=== PATIENT | female | born 1995 | race American Indian/Alaskan Native ===

== ENCOUNTER → 2020-08-25 08:39 | Outpatient (CLI) | payer OTHER, SELFPAY | PROVIDERS: PCP Physician Assistant Medical; Visit Provider Physician Assistant Medical | DX: Z20.2 Contact with and (suspected) exposure to infections with a predominantly sexual mode of transmission (principal) | CPT/HCPCS: 87491; 87563; 87591; 87798 ==

== ENCOUNTER → 2020-09-14 10:55 | Outpatient (CLI) | payer OTHER, SELFPAY ==
[2020-09-14 19:33] LABS: Add Manual Diff / Slide Review NO; Basophils Absolute Auto 0 /uL (0-100); Basophils Percent Auto 0.6 % (0-2); Eosinophils Absolute Auto 200 /uL (0-450); Eosinophils Percent Auto 3.6 % (2-4); Hematocrit 41.8 % (36-46); Hemoglobin 13.9 g/dL (12.0-16.0); Lymphocytes Absolute Auto 1800 /uL (1100-4500); Lymphocytes Percent Auto 32.4 % (25-40); Mean Corpuscular HGB Conc 33.3 % (30-36); Mean Corpuscular Hemoglobin 30.5 PG (26-34); Mean Corpuscular Volume 91.7 fL (80-100); Monocytes Absolute Auto 300 /uL (0-900); Monocytes Percent Auto 5.6 % (3-14); Neutrophils Absolute Auto 3300 /uL (1500-7000); Neutrophils Percent Auto 57.8 % (50-75); Platelet Count 148 X10^3/uL (150-400); Red Blood Cell Count 4.56 X10^6/uL (4.0-5.2); Red Cell Distribution Width 13.7 % (11.6-14.8); White Blood Cell Count 5.7 X10^3/uL (4.5-11.0)
[2020-09-14 20:08] LABS: Monotest Negative (Negative)
[2020-09-14 21:00] LABS: COVID19 - ORCAS (NP or Nasal) Negative (Negative)
[2020-09-18 17:28] LABS: HIV 1 & 2 Ab/Ag 4th Gen Combo NEGATIVE (NEGATIVE)
== END ==
PROVIDERS: PCP Physician Assistant Medical; Visit Provider Physician Assistant Medical
DX: Z20.822 Contact with and (suspected) exposure to COVID-19 (principal); Z20.2 Contact with and (suspected) exposure to infections with a predominantly sexual mode of transmission; J02.9 Acute pharyngitis, unspecified
CPT/HCPCS: 85025; 86318; 87389; U0003

== ENCOUNTER → 2020-09-22 12:17 | Outpatient (CLI) | payer OTHER, SELFPAY ==
[2020-09-22 21:34] LABS: COVID19 - ORCAS (NP or Nasal) Negative (Negative)
== END ==
PROVIDERS: PCP Physician Assistant Medical; Visit Provider Physician Assistant Medical
DX: J02.9 Acute pharyngitis, unspecified (principal); Z20.822 Contact with and (suspected) exposure to COVID-19
CPT/HCPCS: U0003

== ENCOUNTER → 2020-10-11 15:31 | Outpatient (CLI) | payer OTHER, SELFPAY | PROVIDERS: PCP Physician Assistant Medical; Visit Provider Physician Assistant | DX: J02.9 Acute pharyngitis, unspecified (principal) | CPT/HCPCS: 87070 ==

== ENCOUNTER 2020-12-07 12:19 | Emergency (ER) | payer OTHER, SELFPAY ==
[2020-12-07 12:25] VITALS: BP 113/80; PULSE 84; RESP 14; TEMP 36.4; O2SAT 95; BMI 17.4
[2020-12-07 12:47] LABS: Add Manual Diff / Slide Review NO; Basophils Absolute Auto 100 /uL (0-100); Basophils Percent Auto 1.3 % (0-2); Eosinophils Absolute Auto 200 /uL (0-450); Eosinophils Percent Auto 4.4 % (2-4); Hemoglobin 14.4 g/dL (12.0-16.0); Lymphocytes Absolute Auto 1800 /uL (1100-4500); Lymphocytes Percent Auto 44.2 % (25-40); Mean Corpuscular HGB Conc 32.6 % (30-36); Mean Corpuscular Hemoglobin 30.6 PG (26-34); Mean Corpuscular Volume 93.7 fL (80-100); Monocytes Absolute Auto 300 /uL (0-900); Monocytes Percent Auto 6.3 % (3-14); Neutrophils Absolute Auto 1800 /uL (1500-7000); Neutrophils Percent Auto 43.8 % (50-75); Platelet Count 175 X10^3/uL (150-400); Red Cell Distribution Width 13.4 % (11.6-14.8); White Blood Cell Count 4.1 X10^3/uL (4.5-11.0)
[2020-12-07 13:05] LABS: Alanine Aminotransferase 23 IU/L (<35); Albumin 5.1 g/dL (3.5-5.0); Albumin Globulin Ratio 1.8 (1.0-2.8); Alkaline Phosphatase 59 U/L (38-126); Aspartate Aminotransferase 42 IU/L (14-36); Bilirubin Total 0.4 mg/dL (0.2-1.3); Blood Urea Nitrogen 12 mg/dL (7-17); Calcium 10.2 mg/dL (8.4-10.2); Carbon Dioxide 26 mmol/L (22-32); Chloride 102 mmol/L (98-107); Estimated Glomerular Filt Rate > 60.0 mL/min (>60); Globulin 2.8 g/dL (1.7-4.1); Glucose 87 mg/dL (70-100); HEMOLYSIS 45 (0-50); Lipase 241 U/L (23-300); Potassium 3.9 mmol/L (3.4-5.1); Sodium 139 mmol/L (137-145); Total Protein 7.9 g/dL (6.3-8.2)
[2020-12-07] MEDS: KETOROLAC 30 MG/ML VIAL 15 MG IV (13:33)
--- NOTE | 2020-12-07 16:10 | ED_ITS ---
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 She does not currently have a primary care provider , but is looking for 1, she has a Gastroenterology appointment December 28 at [facility] to establish care. She reports that she has had 3 fecal transplants in the past which were helpful, she reports that she is not currently taking any medication at this time. She does not have any nausea or vomiting, she does report a constant low level of pain, she denies any blood in her stool, she has been afebrile, does not have chest pain, shortness of breath, abdomen tenderness, dysuria, pelvic pain, or any other abdominal complaints. She reports that she is weak in, and it has been difficult to keep solid foods in her colon. She reports that she has been doing a lot of pureed foods and fermented foods to help with absorption and she states that whole foods trigger her diarrhea. Related Data Previous Rx's Medication Instructions Recorded ondansetron HCl 4 mg tablet 4 mg PO Q8H PRN #14 tab 12/07/20 (Zofran) tramadol 50 mg tablet 50 mg PO DAILY #10 tab 12/07/20 Allergies Allergy/AdvReac Type Severity Reaction Status Date / Time amoxicillin Allergy Unknown blisters, Verified 12/07/20 12:30 rash ampicillin Allergy Unknown blisters, Verified 12/07/20 12:30 rash clindamycin Allergy Unknown went Verified 12/07/20 12:30 septic vancomycin Allergy Unknown blisters,ra Verified 12/07/20 12:30 sh methocarbamol [From Robaxin] Allergy Verified 12/07/20 12:30 Penicillins Allergy Verified 12/07/20 12:30 reglin Allergy Unknown hallucinations, Uncoded 11/08/20 11:53 burning feeling Review of Systems <EUNICE Hightower - Last Filed: 12/07/20 21:15> Review of Systems Narrative: General: denies fever, chills Head/Neck: denies headache, neck pain Eyes: denies visual changes, eye pain Cardio: denies chest pain, palpitations Respiratory: denies shortness of breath, cough GI: Endorses left upper and lower quadrant pain that is constant and low level, denies nausea, vomiting, endorses frequent bouts of diarrhea : denies dysuria, hematuria MSK: denies joint pain, muscle weakness Skin: denies rash, itching Neuro: denies numbness, tingling Patient History <EUNICE Hightower - Last Filed: 12/07/20 21:15> Medical History Brain tumor, papilloma Gender identity disorder, unspecified Sore throat Toxic megacolon due to Clostridioides difficile Social History Smoking Status: Never smoker Smoking Status: Never smoker alcohol intake frequency: holidays/special occasions only Substance Use Type: marijuana Exam <EUNICE Hightower - Last Filed: 12/07/20 21:15> Narrative Exam Narrative: Independently reviewed vitals signs and nursing notes. General: Awake, alert, nontoxic, no cardiorespiratory distress, underweight Head/Neck: Atraumatic, neck full range of motion Eyes: EOMI, conjunctiva normal Nose: nares patent, no rhinorrhea Mouth/Throat: moist mucus membranes, posterior pharynx normal, no oral lesions Cardio: Regular rate and rhythm, no peripheral edema Respiratory: respirations unlabored without wheezing, stridor, or rales. No retractions. GI: Abdomen soft, nontender to palpation, no masses, no peritoneal signs of acute abdomen MSK: Moves all extremities, neurovascularly intact Skin: Normal capillary refill, no rash Neuro: Normal speech and cognition, normal gait Initial Vital Signs Initial Vital Signs: Vital Signs Temperature 97.5 F L 12/07/20 12:25 Pulse Rate 84 12/07/20 12:25 Respiratory Rate 14 12/07/20 12:25 Blood Pressure 113/80 12/07/20 12:25 Pulse Oximetry 95 12/07/20 12:25 <Amanda Shukla MD - Last Filed: 12/08/20 07:40> Initial Vital Signs Initial Vital Signs: Vital Signs Temperature 97.5 F L 12/07/20 12:25 Pulse Rate 84 12/07/20 12:25 Respiratory Rate 14 12/07/20 12:25 Blood Pressure 113/80 12/07/20 12:25 Pulse Oximetry 95 12/07/20 12:25 Course <EUNICE Hightower - Last Filed: 12/07/20 21:15> Orders Ordered: Discontinued Medications Ketorolac Tromethamine (Ketorolac 30 Mg/Ml Vial) 15 mg IV NOW ONE Stop: 12/07/20 13:28 Last Admin: 12/07/20 13:33 Dose: 15 mg Documented by: NEVA Reevaluation(s) Reevaluation #1: Consult with Dr. Latonya Quijano today from [facility] regarding patient's diagnosis, upcoming appointment with their practice, and plan of care outside of this emergency department visit until December 28. Dr. Quijano requested that we treat patient conservatively until we are sure that her stool is not infectious. Stool PCR sent, calprote ctin also sent in is still pending. PCR is negative for all viruses and bacteria including C diff, Campylobacter, Giardia, Shigelloides, and salmonella. These results were not available at the time of patient visit. Dr. Quijano requested that we not treat her with steroids and that mesalamine might not be helpful either. Vital Signs Vital signs: Vital Signs - 8 hr 12/07/20 16:35 Pulse Rate 80 Respiratory Rate 15 Blood Pressure 110/68 Pulse Oximetry 99 <Amanda Shukla MD - Last Filed: 12/08/20 07:40> Orders Ordered: Discontinued Medications Ketorolac Tromethamine (Ketorolac 30 Mg/Ml Vial) 15 mg IV NOW ONE Stop: 12/07/20 13:28 Last Admin: 12/07/20 13:33 Dose: 15 mg Documented by: NEVA Vital Signs Vital signs: Vital Signs - 8 hr 12/07/20 16:35 Pulse Rate 80 Respiratory Rate 15 Blood Pressure 110/68 Pulse Oximetry 99 MDM - Abdominal Pain <EUNICE Hightower - Last Filed: 12/07/20 21:15> Lab Data Result diagrams: 12/07/20 12:38 12/07/20 12:38 Labs: Lab Results 12/07/20 12/07/20 12/07/20 Range/Units 12:38 12:38 16:20 WBC 4.1 L (4.5-11.0) X10^3/uL RBC 4.70 (4.0-5.2) X10^6/uL Hgb 14.4 (12.0-16.0) g/dL Hct 44.0 (36-46) % MCV 93.7 (80-100) fL MCH 30.6 (26-34) PG MCHC 32.6 (30-36) % RDW 13.4 (11.6-14.8) % Plt Count 175 (150-400) X10^3/uL Neut % (Auto) 43.8 L (50-75) % Lymph % (Auto) 44.2 H (25-40) % Bailey % (Auto) 6.3 (3-14) % Eos % (Auto) 4.4 H (2-4) % Baso % (Auto) 1.3 (0-2) % Neut # (Auto) 1800 (8231-7946) /uL Lymph # (Auto) 1800 (0116-5636) /uL Bailey # (Auto) 300 (0-900) /uL Eos # (Auto) 200 (0-450) /uL Baso # (Auto) 100 (0-100) /uL Sodium 139 (137-145) mmol/L Potassium 3.9 (3.4-5.1) mmol/L Chloride 102 (98-107) mmol/L Carbon Dioxide 26 (22-32) mmol/L BUN 12 (7-17) mg/dL Creatinine 0.75 (0.52-1.04) mg/dL Estimated GFR > 60.0 (>60) mL/min BUN/Creatinine Ratio 16.0 (6-22) Glucose 87 (70-100) mg/dL Calcium 10.2 (8.4-10.2) mg/dL Total Bilirubin 0.4 (0.2-1.3) mg/dL AST 42 H (14-36) IU/L ALT 23 (<35) IU/L Alkaline Phosphatase 59 (38-126) U/L Total Protein 7.9 (6.3-8.2) g/dL Albumin 5.1 H (3.5-5.0) g/dL Globulin 2.8 (1.7-4.1) g/dL Albumin/Globulin Ratio 1.8 (1.0-2.8) Lipase 241 (23-300) U/L Stl C. cayetanensis PCR Not detected (Not Detect) Stool Rotavirus (PCR) Not detected (Not Detect) Stool Adenovirus (PCR) Not detected (Not Detect) Stool Astrovirus (PCR) Not detected (Not Detect) Stool Cryptosporidium PCR Not detected (Not Detect) Stl E.coli Shiga Tox PCR Not detected (Not Detect) St Sh/Enteroin Ecoli PCR Not detected (Not Detect) Stool E coli O157 PCR Not Reportable Stl Enterotoxigenic E PCR Not detected (Not Detect) Stool EPEC (PCR) Not detected (Not Detect) Stl E. histolytica PCR Not detected (Not Detect) Stool Giardia Lamblia PCR Not detected (Not Detect) Stool Sapovirus (PCR) Not detected (Not Detect) Stl P. shigelloides PCR Not detected (Not Detect) St Y.enterocolitica PCR Not detected (Not Detect) Stool Vibrio (PCR) Not detected (Not Detect) Stl Vibrio cholerae PCR Not detected (Not Detect) Stl Enteroaggr Ecoli PCR Not detected (Not Detect) Stl Norovirus GI/GII PCR Not detected (Not Detect) Campylobacter (PCR) Not detected (Not Detect) C. difficile Tox (PCR) Not detected (Not Detect) Salmonella (PCR) Not detected (Not Detect) Point of care testing: Point of Care Testing Test Results Negative Urine Dip Bedside Urine Glucose Negative Bedside Urine Bilirubin - Negative Bedside Urine Ketone - Negative Urine Specific [place] 1.010 Bedside Urine Occult Blood - Negative Bedside Urine pH 7.0 Bedside Urine Protein - Negative Bedside Urine Urobilinogen - Negative Bedside Urine Nitrite - Negative Bedside Urine Leukocytes - Negative Esterase MDM Narrative Medical decision making narrative: 25-year-old female with complicated GI history including 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 Patient has an upcoming ap pointment with [facility] on December 28, 2020. Today her stool was sent for GI panel, a stool calprotectin which is still pending, and lab work including CMP and CBC was completed, all of which do not show any signs of acute infection. She does not have any blood in her stool. This is most likely an acute flare of her ulcerative colitis without an infectious etiology. Differential includes Crohn's disease, other infectious colitis, IBS, ischemic colitis, diverticular disease, malignancy, antibiotic associated diarrhea. <Amanda Shukla MD - Last Filed: 12/08/20 07:40> Lab Data Labs: Lab Results 12/07/20 12/07/20 12/07/20 Range/Units 12:38 12:38 16:20 WBC 4.1 L (4.5-11.0) X10^3/uL RBC 4.70 (4.0-5.2) X10^6/uL Hgb 14.4 (12.0-16.0) g/dL Hct 44.0 (36-46) % MCV 93.7 (80-100) fL MCH 30.6 (26-34) PG MCHC 32.6 (30-36) % RDW 13.4 (11.6-14.8) % Plt Count 175 (150-400) X10^3/uL Neut % (Auto) 43.8 L (50-75) % Lymph % (Auto) 44.2 H (25-40) % Bailey % (Auto) 6.3 (3-14) % Eos % (Auto) 4.4 H (2-4) % Baso % (Auto) 1.3 (0-2) % Neut # (Auto) 1800 (7679-0020) /uL Lymph # (Auto) 1800 (6444-7121) /uL Bailey # (Auto) 300 (0-900) /uL Eos # (Auto) 200 (0-450) /uL Baso # (Auto) 100 (0-100) /uL Sodium 139 (137-145) mmol/L Potassium 3.9 (3.4-5.1) mmol/L Chloride 102 (98-107) mmol/L Carbon Dioxide 26 (22-32) mmol/L BUN 12 (7-17) mg/dL Creatinine 0.75 (0.52-1.04) mg/dL Estimated GFR > 60.0 (>60) mL/min BUN/Creatinine Ratio 16.0 (6-22) Glucose 87 (70-100) mg/dL Calcium 10.2 (8.4-10.2) mg/dL Total Bilirubin 0.4 (0.2-1.3) mg/dL AST 42 H (14-36) IU/L ALT 23 (<35) IU/L Alkaline Phosphatase 59 (38-126) U/L Total Protein 7.9 (6.3-8.2) g/dL Albumin 5.1 H (3.5-5.0) g/dL Globulin 2.8 (1.7-4.1) g/dL Albumin/Globulin Ratio 1.8 (1.0-2.8) Lipase 241 (23-300) U/L Stl C. cayetanensis PCR Not detected (Not Detect) Stool Rotavirus (PCR) Not detected (Not Detect) Stool Adenovirus (PCR) Not detected (Not Detect) Stool Astrovirus (PCR) Not detected (Not Detect) Stool Cryptosporidium PCR Not detected (Not Detect) Stl E.coli Shiga Tox PCR Not detected (Not Detect) St Sh/Enteroin Ecoli PCR Not detected (Not Detect) Stool E coli O157 PCR Not Reportable Stl Enterotoxigenic E PCR Not detected (Not Detect) Stool EPEC (PCR) Not detected (Not Detect) Stl E. histolytica PCR Not detected (Not Detect) Stool Giardia Lamblia PCR Not detected (Not Detect) Stool Sapovirus (PCR) Not detected (Not Detect) Stl P. shigelloides PCR Not detected (Not Detect) St Y.enterocolitica PCR Not detected (Not Detect) Stool Vibrio (PCR) Not detected (Not Detect) Stl Vibrio cholerae PCR Not detected (Not Detect) Stl Enteroaggr Ecoli PCR Not detected (Not Detect) Stl Norovirus GI/GII PCR Not detected (Not Detect) Campylobacter (PCR) Not detected (Not Detect) C. difficile Tox (PCR) Not detected (Not Detect) Salmonella (PCR) Not detected (Not Detect) Point of care testing: Point of Care Testing Test Results Negative Urine Dip Bedside Urine Glucose Negative Bedside Urine Bilirubin - Negative Bedside Urine Ketone - Negative Urine Specific [place] 1.010 Bedside Urine Occult Blood - Negative Bedside Urine pH 7.0 Bedside Urine Protein - Negative Bedside Urine Urobilinogen - Negative Bedside Urine Nitrite - Negative Bedside Urine Leukocytes - Negative Esterase Discharge Plan Departure Patient Disposition: Home Clinical Impression: Ulcerative colitis, acute Qualifiers: Digestive disease complication type: without complication Qualified Code(s): K 51.90 - Ulcerative colitis, unspecified, without complications Instructions: DI for Ulcerative Colitis Activity Restrictions/Additional Instructions: *You have been diagnosed with a ulcerative colitis flare. Please go to your appointment on December 28 with [facility]. Thank you for providing a stool sample, it will take about 24 hours for the culture calprotectin to results, if it results today while I am on shift I will give you a call, however let's not cross our fingers on that. We are starting conservatively with you as you know, I will order using tramadol these can also diamond picker at [facility]. Please do not take any ibuprofen or similar for 24 hours , tramadol is okay.. Try to stay hydrated and keep down which you can. It was nice to meet you today, hopefully to related good ground work for you to follow- up with gastroenterology. *What to do: *Please continue to take your regular medications as directed. [ x] New medication prescriptions sent to your pharmacy: [sonia Rodriguez] [ ] New medication written as a paper prescription [ ] No new medications given *Please follow up with your primary care provider in 2-3 days, call for an appointment. Let them know you were seen in the Emergency Department and that we ask that you be seen in follow up. We will electronically transmit a record of today's note if your PCP is in our system *If you do not have a primary care provider please contact the [facility] Resource line at [phone]. They will ask some questions about your medical history and help get you set up with a doctor in the community. *Return to Emergency Department if you should have any new, worsening or concerning symptoms, such as [fever greater than 101F, chills, worsening pain, persistent vomiting or other bothersome symptoms] Prescriptions: New ondansetron HCl [Zofran] 4 mg tablet 4 mg PO Q8H PRN (Reason: nausea and vomiting) Qty: 14 RF: 0 tramadol 50 mg tablet 50 mg PO DAILY Qty: 10 RF: 0 Referrals: Solange Badillo DO [Primary Care Provider] - Irwin Cancino MD [Physician] - Shiva Senior MD [Physician] - Stand Alone Forms: Work Release Note <Amanda Shukla MD - Last Filed: 12/08/20 07:40> Cosign ED Attending Cosignature Attestation: I was immediately available in the department for consultation throughout this patient's visit. I agree with documentation as above. Amanda Shukla MD
[2020-12-07 16:35] VITALS: BP 110/68; PULSE 80; RESP 15; O2SAT 99
[2020-12-07 18:01] LABS: Adenovirus F 40/41 Not Detected (Not Detect); Astrovirus Not Detected (Not Detect); Campylobacter Not Detected (Not Detect); Clostridium difficile toxin AB Not Detected (Not Detect); Cryptosporidium Not Detected (Not Detect); Cyclospora cayetanensis Not Detected (Not Detect); Entamoeba histolytica Not Detected (Not Detect); Enteroaggregative E.coli Not Detected (Not Detect); Enteropathogenic E.coli Not Detected (Not Detect); Enterotoxigenic E.coli It/st Not Detected (Not Detect); Giardia lamblia Not Detected (Not Detect); Norovirus GI/GII Not Detected (Not Detect); Plesiomonsa shigelloides Not Detected (Not Detect); Rotavirus A Not Detected (Not Detect); Salmonella Not Detected (Not Detect); Sapovirus Not Detected (Not Detect); Shiga-like toxin-prod E.coli Not Detected (Not Detect); Shigella/Enteroinvasive E.coli Not Detected (Not Detect); Vibrio Not Detected (Not Detect); Vibrio cholerae Not Detected (Not Detect); Yersinia enterocolitica Not Detected (Not Detect)
[2020-12-08 18:48] LABS: Calprotectin, Stool 31 ug/g (0-120)
== END 2020-12-07 16:40 | disposition home or self-care (01) ==
PROVIDERS: Emergency Medicine; Emergency Provider Nurse Practitioner Critical Care Medicine; PCP Family Medicine
DX: K51.90 Ulcerative colitis, unspecified, without complications (principal); R10.84 Generalized abdominal pain; A04.72 Enterocolitis due to Clostridium difficile, not specified as recurrent
CPT/HCPCS: 36415; 80053; 81003; 81025; 83690; 83993; 85025; 87507; 93005; 96374; 99284; J1885

== ENCOUNTER → 2020-12-13 13:11 | Outpatient (CLI) | payer OTHER, SELFPAY ==
[2020-12-13 20:27] LABS: Urine N gonorrhoeae NOT DETECTED
[2020-12-13 20:33] LABS: Urine Chlamydia NOT DETECTED
[2020-12-14 19:59] LABS: HIV 1 & 2 Ab/Ag 4th Gen Combo NEGATIVE (NEGATIVE)
[2020-12-15 01:07] LABS: Hepatitis B Core AB w/Reflex Negative (Negative)
== END ==
PROVIDERS: PCP Family Medicine; Visit Provider Family Medicine
DX: F64.9 Gender identity disorder, unspecified (principal); K51.90 Ulcerative colitis, unspecified, without complications; Z20.2 Contact with and (suspected) exposure to infections with a predominantly sexual mode of transmission
CPT/HCPCS: 86704; 87389; 87491; 87522; 87591

== ENCOUNTER → 2021-01-09 10:53 | Outpatient (CLI) | payer OTHER, SELFPAY ==
[2021-01-10 15:50] LABS: Urine N gonorrhoeae NOT DETECTED
[2021-01-10 16:15] LABS: Urine Chlamydia NOT DETECTED
[2021-01-11 04:10] LABS: HSV 2 IGG AB < 0.91 index (0.00-0.90); HSV1IGG < 0.91 index (0.00-0.90)
[2021-01-11 08:30] LABS: RPR Screen Non Reactive (Non Reactive)
[2021-01-11 17:39] LABS: HIV 1 & 2 Ab/Ag 4th Gen Combo NEGATIVE (NEGATIVE)
== END ==
PROVIDERS: PCP Family Medicine; Referring Provider Physician Assistant; Visit Provider Physician Assistant
DX: Z20.2 Contact with and (suspected) exposure to infections with a predominantly sexual mode of transmission (principal); Z72.51 High risk heterosexual behavior
CPT/HCPCS: 86592; 86695; 86696; 87389; 87491; 87591

== ENCOUNTER → 2021-01-30 08:27 | Outpatient (CLI) | payer OTHER, SELFPAY ==
[2021-01-30 23:31] LABS: COVID19 - ORCAS (NP or Nasal) Negative (Negative)
== END ==
PROVIDERS: PCP Family Medicine; Visit Provider Physician Assistant
DX: Z20.822 Contact with and (suspected) exposure to COVID-19 (principal)
CPT/HCPCS: U0003

== ENCOUNTER → 2022-01-01 08:43 | Outpatient (CLI) | payer OTHER, SELFPAY ==
[2022-01-01 19:31] LABS: Add Manual Diff / Slide Review NO; Basophils Absolute Auto 0 /uL (0-100); Basophils Percent Auto 0.5 % (0-2); Eosinophils Absolute Auto 200 /uL (0-450); Hemoglobin 13.9 g/dL (12.0-16.0); Lymphocytes Absolute Auto 1600 /uL (1100-4500); Lymphocytes Percent Auto 31.2 % (25-40); Mean Corpuscular HGB Conc 33.9 % (30-36); Mean Corpuscular Hemoglobin 30.3 PG (26-34); Mean Corpuscular Volume 89.6 fL (80-100); Monocytes Absolute Auto 400 /uL (0-900); Monocytes Percent Auto 7.7 % (3-14); Neutrophils Absolute Auto 2900 /uL (1500-7000); Neutrophils Percent Auto 56.6 % (50-75); Platelet Count 182 X10^3/uL (150-400); Red Blood Cell Count 4.58 X10^6/uL (4.0-5.2); White Blood Cell Count 5.2 X10^3/uL (4.5-11.0)
[2022-01-01 21:27] LABS: Urine N gonorrhoeae NOT DETECTED
[2022-01-01 21:39] LABS: Urine Chlamydia NOT DETECTED
[2022-01-01 21:43] LABS: Alanine Aminotransferase 22 IU/L (<35); Albumin 4.5 g/dL (3.5-5.0); Albumin Globulin Ratio 1.6 (1.0-2.8); Alkaline Phosphatase 81 U/L (38-126); Aspartate Aminotransferase 25 IU/L (14-36); BUN Creatinine Ratio 17.8 (6-22); Bilirubin Total 0.4 mg/dL (0.2-1.3); Blood Urea Nitrogen 13 mg/dL (7-17); Calcium 9.4 mg/dL (8.4-10.2); Carbon Dioxide 31 mmol/L (22-32); Chloride 102 mmol/L (98-107); Estimated Glomerular Filt Rate > 60 mL/min (>60); Globulin 2.8 g/dL (1.7-4.1); Glucose 81 mg/dL (70-100); HEMOLYSIS < 15 (0-50); Potassium 4.3 mmol/L (3.4-5.1); Sodium 142 mmol/L (137-145); Total Protein 7.3 g/dL (6.3-8.2)
[2022-01-03 03:08] LABS: RPR Screen Non Reactive (Non Reactive)
[2022-01-03 16:35] LABS: HIV 1 & 2 Ab/Ag 4th Gen Combo NEGATIVE (NEGATIVE)
== END ==
PROVIDERS: PCP Physician Assistant Medical; Visit Provider Physician Assistant
DX: Z11.3 Encounter for screening for infections with a predominantly sexual mode of transmission (principal); D33.2 Benign neoplasm of brain, unspecified; Z20.2 Contact with and (suspected) exposure to infections with a predominantly sexual mode of transmission; Z72.51 High risk heterosexual behavior
CPT/HCPCS: 80053; 85025; 86592; 87389; 87491; 87591

== ENCOUNTER → 2022-06-06 13:37 | Outpatient (CLI) | payer OTHER, SELFPAY ==
[2022-06-06 20:23] LABS: Add Manual Diff / Slide Review NO; Basophils Absolute Auto 0 /uL (0-100); Basophils Percent Auto 0.6 % (0-2); Eosinophils Absolute Auto 400 /uL (0-450); Eosinophils Percent Auto 5.4 % (2-4); Hematocrit 38.1 % (36-46); Hemoglobin 12.7 g/dL (12.0-16.0); Lymphocytes Absolute Auto 2000 /uL (1100-4500); Lymphocytes Percent Auto 30.9 % (25-40); Mean Corpuscular HGB Conc 33.4 % (30-36); Mean Corpuscular Hemoglobin 29.6 PG (26-34); Mean Corpuscular Volume 88.5 fL (80-100); Monocytes Absolute Auto 600 /uL (0-900); Monocytes Percent Auto 8.6 % (3-14); Neutrophils Absolute Auto 3600 /uL (1500-7000); Neutrophils Percent Auto 54.5 % (50-75); Platelet Count 147 X10^3/uL (150-400); Red Cell Distribution Width 14.6 % (11.6-14.8); White Blood Cell Count 6.5 X10^3/uL (4.5-11.0)
[2022-06-06 20:49] LABS: Alanine Aminotransferase 19 IU/L (<35); Albumin 4.1 g/dL (3.5-5.0); Albumin Globulin Ratio 1.6 (1.0-2.8); Alkaline Phosphatase 56 U/L (38-126); Aspartate Aminotransferase 27 IU/L (14-36); BUN Creatinine Ratio 21.3 (6-22); Bilirubin Total 0.3 mg/dL (0.2-1.3); Blood Urea Nitrogen 13 mg/dL (7-17); Calcium 9.1 mg/dL (8.4-10.2); Carbon Dioxide 27 mmol/L (22-32); Chloride 103 mmol/L (98-107); Estimated Glomerular Filt Rate > 60 mL/min (>60); Globulin 2.5 g/dL (1.7-4.1); Glucose 92 mg/dL (70-100); HEMOLYSIS < 15 (0-50); Potassium 3.6 mmol/L (3.4-5.1); Sodium 139 mmol/L (137-145); Total Protein 6.6 g/dL (6.3-8.2)
[2022-06-06 21:23] LABS: TSH w/ Reflex to FT4 0.53 uIU/mL (0.47-4.68)
[2022-06-06 21:36] LABS: Vitamin B12 754 pg/mL (239-931)
[2022-06-06 21:38] LABS: HIV 1 & 2 Ab/Ag 4th Gen Combo NEGATIVE (NEGATIVE)
== END ==
PROVIDERS: PCP Physician Assistant Medical; Visit Provider Physician Assistant
DX: J00 Acute nasopharyngitis [common cold] (principal); Z11.3 Encounter for screening for infections with a predominantly sexual mode of transmission; Z72.51 High risk heterosexual behavior; Z78.9 Other specified health status
CPT/HCPCS: 80053; 82607; 84443; 85025; 87389

== ENCOUNTER → 2023-03-25 10:29 | Outpatient (CLI) | payer OTHER, SELFPAY ==
[2023-03-25 21:13] LABS: Influenza A - CEPHEID Flu A NEGATIVE (NEGATIVE); Influenza B - CEPHEID Flu B NEGATIVE (NEGATIVE)
== END ==
PROVIDERS: PCP Physician Assistant; Visit Provider Physician Assistant
DX: M79.10 Myalgia, unspecified site (principal); J02.9 Acute pharyngitis, unspecified
CPT/HCPCS: 87070; 87077; 87147; 87186; 87502

== ENCOUNTER → 2023-05-29 09:17 | Outpatient (CLI) | payer OTHER, SELFPAY | PROVIDERS: PCP Physician Assistant; Visit Provider Physician Assistant Medical | DX: R30.0 Dysuria (principal) | CPT/HCPCS: 87086 ==

== ENCOUNTER → 2023-11-10 11:25 | Outpatient (CLI) | payer OTHER, MEDICAID, SELFPAY ==
[2023-11-10 19:20] LABS: Add Manual Diff / Slide Review NO; Basophils Absolute Auto 100 /uL (0-100); Basophils Percent Auto 0.7 % (0-2); Eosinophils Absolute Auto 300 /uL (0-450); Eosinophils Percent Auto 3.9 % (2-4); Hematocrit 38.4 % (36-46); Hemoglobin 12.9 g/dL (12.0-16.0); Lymphocytes Absolute Auto 2400 /uL (1100-4500); Mean Corpuscular HGB Conc 33.6 % (30-36); Mean Corpuscular Hemoglobin 30.4 PG (26-34); Mean Corpuscular Volume 90.4 fL (80-100); Monocytes Absolute Auto 600 /uL (0-900); Monocytes Percent Auto 8.7 % (3-14); Neutrophils Absolute Auto 4000 /uL (1500-7000); Neutrophils Percent Auto 53.7 % (50-75); Platelet Count 169 X10^3/uL (150-400); Red Blood Cell Count 4.25 X10^6/uL (4.0-5.2); White Blood Cell Count 7.4 X10^3/uL (4.5-11.0)
[2023-11-10 19:49] LABS: Alanine Aminotransferase 16 IU/L (<35); Albumin 4.4 g/dL (3.5-5.0); Albumin Globulin Ratio 1.7 (1.0-2.8); Alkaline Phosphatase 57 U/L (38-126); Aspartate Aminotransferase 27 IU/L (14-36); BUN Creatinine Ratio 22.2 (6-22); Bilirubin Total 0.6 mg/dL (0.2-1.3); Blood Urea Nitrogen 16 mg/dL (7-17); Calcium 9.7 mg/dL (8.4-10.2); Carbon Dioxide 23 mmol/L (22-32); Chloride 105 mmol/L (98-107); Estimated Glomerular Filt Rate > 60 mL/min (>60); Globulin 2.6 g/dL (1.7-4.1); Glucose 88 mg/dL (70-100); HEMOLYSIS < 15 (0-50); Potassium 4.2 mmol/L (3.4-5.1); Sodium 135 mmol/L (137-145)
[2023-11-10 20:04] LABS: TSH w/ Reflex to FT4 1.68 uIU/mL (0.47-4.68)
== END ==
PROVIDERS: PCP Physician Assistant; Visit Provider Physician Assistant
DX: R40.0 Somnolence (principal); R27.8 Other lack of coordination; D33.2 Benign neoplasm of brain, unspecified
CPT/HCPCS: 80053; 84443; 85025

== ENCOUNTER → 2023-11-26 11:03 | Outpatient (CLI) | payer OTHER, MEDICAID, SELFPAY ==
--- NOTE | 2023-11-26 11:04 | DI.MRI.S_ITS ---
PROCEDURE: MR HEAD/BRAIN WO/W CON INDICATIONS: f/u brain tumor (missed 5 year check up). TECHNIQUE: Noncontrast axial T1 spin echo, axial T2 fast spin echo, sagittal and axial FLAIR, coronal T2 fast spin echo, axial gradient echo, axial diffusion and ADC through the brain. After the administration of contrast, axial and coronal and sagittal 3D VIBE or T1 spin echo with fat saturation through the brain. COMPARISON: Outside Facility, MR, MR HEAD/BRAIN WO/W CON, 11/04/2014, 11:33. FINDINGS: Image quality: Excellent. CSF Spaces: Basal cisterns are patent. No extra-axial fluid collections. Ventricles are normal in size and shape. Brain: Postsurgical changes from resection of a midline posterior fossa lesion. Encephalomalacia is present. Redemonstration of small rounded focus along the superior margin of the resection cavity which is stable in size compared to prior. No enhancement is appreciated.. Susceptibility artifact is seen adjacent to the craniotomy and consistent with postsurgical changes. No midline shift. No intracranial bleeds or masses. No abnormal intracranial enhancement. The brainstem appears normal. Diffusion-weighted images demonstrate no acute infarct. No chronic ischemic insults. Normal intravascular flow voids are present. Skull and face: Suboccipital craniotomy changes. Calvarial marrow is normal in signal. Orbits appear normal. Sinuses: Mild diffuse paranasal sinus mucosal thickening. Left maxillary sinus mucous retention cyst. The mastoids appear clear. IMPRESSION: Stable appearance of postoperative changes from occipital craniotomy and resection of posterior fossa mass. Redemonstration of small rounded area within the surgical bed with no appreciable enhancement. Given stability, this is likely postsurgical in etiology. Recommend continued attention on follow-up exams. Dictated by: Lg Whelan M.D. on 11/28/2023 at 11:58 Approved by: Lg Whelan M.D. on 11/28/2023 at 12:03
== END ==
PROVIDERS: PCP Physician Assistant; Referring Provider Physician Assistant; Visit Provider Physician Assistant
DX: D33.2 Benign neoplasm of brain, unspecified (principal); R27.8 Other lack of coordination; R40.0 Somnolence; G93.89 Other specified disorders of brain
CPT/HCPCS: 70553; A9579

== ENCOUNTER → 2024-02-11 10:58 | Outpatient (CLI) | payer OTHER, SELFPAY | PROVIDERS: PCP Physician Assistant; Visit Provider Nurse Practitioner Adult Health | DX: Z11.3 Encounter for screening for infections with a predominantly sexual mode of transmission (principal) | CPT/HCPCS: 87491; 87591; 87661; 87798; 87801 ==

== ENCOUNTER 2024-03-12 07:31 | Day surgery (SDC) | payer OTHER, SELFPAY ==
[2024-03-08 12:23] VITALS: BMI 18.8
[2024-03-12] VITALS (8 sets, daily range): BP systolic 71–114; BP diastolic 38–80; PULSE 55–86; RESP 10–16; TEMP 36.3–36.8; O2SAT 96–100; BMI 18.8
[2024-03-12] MEDS: LACTATED RINGERS 1,000 ML 21 ML IV (08:07)
--- NOTE | 2024-03-12 08:21 | PM.PREOP ---
Pre-operative Note Interval Note History & Physical reviewed/Exam performed by Physician: Yes Changes to H&P: No
--- NOTE | 2024-03-12 08:58 | SUR.OPER ---
Lithotomy on padded OR bed, head on pillow, arms secured on padded arm boards at <90 degrees abduction. Legs secured in padded yellow fins stirrups.
--- NOTE | 2024-03-12 09:09 | PM.OP.1 ---
Operative Date/Time/Diagnoses Date of procedure: 03/12/24 Time of procedure: 09:09 Pre-op diagnosis: Retained fragment of IUD and placement of Mirena IUD Post-op diagnosis: same Procedure & Clinicians Procedure: Hysteroscopy with removal of retained IUD fragment and placement of Mirena IUD Same procedure as scheduled: Yes Indications: Fragment ParaGard IUD retained in uterus after IUD removal. Patient requesting placement of Mirena IUD. Surgeon: Latanya Cardenas Click Yes if Unassisted: Yes Anesthesia Type: General Operative Notes Findings: Normal exam under anesthesia. ParaGard arm fragment embedded in myometrium. Uterus sounded to 9 cm with Mirena IUD placed without difficulty. Strings cut to 4 cm. Closure Type: not applicable Specimen(s): none sent Estimated Blood Loss (mL): 5 Blood products transfused: none Procedure in detail: The patient was brought to the operating room where she underwent general anesthesia. She was placed in low stirrups She was prepped and draped in usual sterile fashion with pulsatile stockings in place and functional, warming in place. A single-tooth tenaculum was placed on the anterior lip of the cervix and the uterus dilated to #8 Hegar dilator. The hysteroscope was placed into the uterus with a sorbitol solution running and under constant suction. The resecting loop set at 60 W of cutting was used to hook the fragment to allow removal. The uterus was sounded and the Mirena IUD placed to the fundus. The strings were cut to 4 cm. The patient went to recovery room in good condition counts of instruments and sponges were correct. Estimated blood loss less than 5 mL. The sorbitol solution I=O approximately 500 mL. Complications: none Post-operative Condition: stable Disposition: same day surgery Plan for aftercare: Home when awake and stable
--- NOTE | 2024-03-12 09:25 | SUR.PHASEI ---
Giving pt fluids and having her drink fluids
[2024-03-12] MEDS: ACETAMINOPHEN 325 MG TABLET 650 MG PO (10:04)
[2024-03-12] MEDS: ONDANSETRON 4 MG/2 ML INJ IV (10:05)
== END 2024-03-12 10:31 | disposition home or self-care (01) ==
PROVIDERS: PCP Physician Assistant; Referring Provider Specialist; Visit Provider Specialist
PROC: 0UDB8ZZ Extraction of Endometrium, Via Natural or Artificial Opening Endoscopic (ICD-10-PCS; CPT 58558; principal; 2024-03-12 09:00)
DX: Z30.433 Encounter for removal and reinsertion of intrauterine contraceptive device (principal); T83.31XA Breakdown (mechanical) of intrauterine contraceptive device, initial encounter; T83.32XA Displacement of intrauterine contraceptive device, initial encounter
CPT/HCPCS: 58562; 58300; 81025; C1713; J1100; J1885; J2250; J2405; J2704; J3010; J7298

== ENCOUNTER → 2024-05-10 12:10 | Outpatient (CLI) | payer OTHER, SELFPAY ==
[2024-05-10 20:18] LABS: Influenza A - CEPHEID Flu A NEGATIVE (NEGATIVE); Influenza B - CEPHEID Flu B NEGATIVE (NEGATIVE); Respiratory Syncytial Virus Negative (Negative)
[2024-05-10 20:19] LABS: COVID-19 CEPHEID 4-PLEX PCR POSITIVE (Negative)
== END ==
PROVIDERS: PCP Physician Assistant; Visit Provider Family Medicine
DX: R50.9 Fever, unspecified (principal); R05.9 Cough, unspecified
CPT/HCPCS: 87635; 87400 ×2; 87420; 0241U

== ENCOUNTER → 2024-06-02 08:36 | Outpatient (CLI) | payer OTHER, SELFPAY | PROVIDERS: PCP Physician Assistant; Visit Provider Physician Assistant Medical | DX: R30.0 Dysuria (principal) | CPT/HCPCS: 87086 ==

== ENCOUNTER → 2024-08-09 13:21 | Outpatient (CLI) | payer OTHER, SELFPAY ==
[2024-08-09 20:17] LABS: Add Manual Diff / Slide Review NO; Basophils Absolute Auto 0 /uL (0-100); Basophils Percent Auto 0.8 % (0-2); Eosinophils Absolute Auto 300 /uL (0-450); Eosinophils Percent Auto 5.3 % (2-4); Hematocrit 37.2 % (36-46); Hemoglobin 12.4 g/dL (12.0-16.0); Lymphocytes Absolute Auto 2300 /uL (1100-4500); Lymphocytes Percent Auto 37.1 % (25-40); Mean Corpuscular HGB Conc 33.3 % (30-36); Mean Corpuscular Hemoglobin 30.2 PG (26-34); Mean Corpuscular Volume 90.6 fL (80-100); Monocytes Absolute Auto 400 /uL (0-900); Monocytes Percent Auto 6.9 % (3-14); Neutrophils Absolute Auto 3200 /uL (1500-7000); Neutrophils Percent Auto 49.9 % (50-75); Platelet Count 184 X10^3/uL (150-400); Red Cell Distribution Width 13.3 % (11.6-14.8); White Blood Cell Count 6.3 X10^3/uL (4.5-11.0)
[2024-08-09 20:26] LABS: HEMOLYSIS < 15 (0-50); Iron 126 ug/dL (37-170)
[2024-08-09 20:39] LABS: Percent Iron Saturation 37 % (15-50); Total Iron Binding Capacity 339 ug/dL (265-497); Transferrin 264 mg/dL (206-381)
[2024-08-09 20:47] LABS: Vitamin D 25 Hydroxy (D3) 44.5 ng/mL (30.0-100.0)
[2024-08-09 20:59] LABS: TSH w/ Reflex to FT4 0.68 uIU/mL (0.47-4.68)
[2024-08-09 21:03] LABS: Ferritin 19 ng/mL (6-137)
[2024-08-09 21:20] LABS: Vitamin B12 641 pg/mL (239-931)
== END ==
PROVIDERS: PCP Physician Assistant; Visit Provider Family Medicine
DX: J45.909 Unspecified asthma, uncomplicated (principal); R53.83 Other fatigue; D64.9 Anemia, unspecified; Z78.9 Other specified health status
CPT/HCPCS: 82306; 82607; 82728; 83540; 83550; 84443; 85025